=== PATIENT | male | born 1990 | race African-American/Black ===

== ENCOUNTER 2019-08-10 06:27 | Emergency (ER) | payer MEDICAID ==
[~2019-08-10] VITALS: Ht 185.4 cm; Wt 85.3 kg
[2019-08-10 06:30] VITALS: BP 132/74
--- NOTE | 2019-08-10 06:30 | NUR ---
ED Nurse Note: PT WALKED IN TO ED FROM C/O SOB AND COUGH X3DAYS. PT DOES NOT PRESENT WITH FEVER AND HAS BEEN ISOLATING AT HOME. DENIES KNOWN CONTACT WITH ANYONE WITH COVID SYMPTOMS. VSS, NAD, AMBULATORY, AAOX4
--- NOTE | 2019-08-10 06:35 | NUR ---
ED Nurse Note: ERMD AT BEDSIDE
[2019-08-10 06:40] VITALS: BP 133/74
--- NOTE | 2019-08-10 06:40 | NUR ---
ELOPEMENT: DURING ERMD EVALUATION, PATIENT ELOPED BY WALKING THROUGH BAY ENTRANCE. PATIENT DID NOT HAVE ANY MEDICAL DEVICES ON THE BODY. TRUST AND ESTATES [employer] AWARE.
--- NOTE | 2019-08-10 06:51 | Emergency Room Report ---
History of Present Illness General Chief Complaint: Upper Respiratory Illness Source: Patient Present Illness HPI Patient is a 29-year-old male who presents after increased reported difficulty with breathing. Patient reports having prior history of asthma. He states that he wants to be tested for coronavirus. History is limited by patient's cooperation. Allergies: Coded Allergies: No Known Allergies (Unverified , 08/10/19) COVID-19 Screening Contact w/high risk pt: No Recent Travel to affected area: No Experienced COVID-19 symptoms?: Yes COVID-19 symptoms experienced: Shortness of Breath, Cough Patient History Reviewed Nursing Documentation: PMH: Agreed; PSxH: Agreed Nursing Documentation-PM Past Medical History: No Stated History Review of Systems All Other Systems: negative except mentioned in HPI Physical Exam Vital Signs Date Time Temp Pulse Resp B/P (MAP) Pulse Ox O2 Delivery O2 Flow Rate FiO2 08/10/19 06:35 98.1 80 16 133/74 (93) 98 Room Air General Appearance: well appearing, GCS 15 Head: normocephalic, atraumatic ENT: hearing grossly normal, normal voice Neck: full range of motion Respiratory: no respiratory distress, speaking full sentences Cardiovascular #1: normal inspection Gastrointestinal: normal inspection Musculoskeletal: no calf tenderness Neurologic: alert, motor strength/tone normal, diagram clerk III-XII nml as tested, normal gait Psychiatric: mood/affect normal Skin: no rash, other - Well healed scar to right side of face Medical Decision Making Diagnostic Impression: Primary Impression: Asthma exacerbation ER Course Patient presented for difficulty breathing. Differential diagnosis include was not limited to asthma exacerbation, pneumonia, bronchitis, coronavirus infection among others. Patient has a benign exam and does not appear to require any imaging or laboratory testing at this time. Patient was seen by me in the emergency department. Patient was noted to have no audible wheezing noted. Patient was seen going through doors of the room that he was in. He stated he was looking for alcohol wipes. Patient subsequently stated he wanted to leave the hospital immediately and left the hospital quickly. Patient subsequently left the hospital voluntarily walking briskly out of the department. Last Vital Signs Date Time Temp Pulse Resp B/P (MAP) Pulse Ox O2 Delivery O2 Flow Rate FiO2 08/10/19 06:35 98.1 80 16 133/74 (93) 98 Room Air Status: improved Disposition: ELOPED Condition: Stable Cristopher Kim MD Aug 10, 2019 06:51
== END 2019-08-10 07:00 | disposition left against medical advice (07) ==
LOC: EMR 06:50
DX: J45.901 Unspecified asthma with (acute) exacerbation (principal); R06.02 Shortness of breath; R05 Cough
CPT/HCPCS: 99281